=== PATIENT | female | born 1970 | race African-American/Black ===

== ENCOUNTER 2024-01-19 04:34 | Day surgery (SDC) | payer BC ==
[2024-01-13 10:17] VITALS: BMI 20.1
[2024-01-19 10:30] VITALS: TEMP 97.3
[2024-01-19 11:12] VITALS: BP 125/67; PULSE 60; RESP 16
== END 2024-01-19 11:15 | disposition home or self-care (01) ==
LOC: JASU-ENDO 04:34
PROVIDERS: ATTEND Internal Medicine Gastroenterology
PROC: 0DBN8ZX Excision of Sigmoid Colon, Via Natural or Artificial Opening Endoscopic, Diagnostic (ICD-10-PCS; principal; 2024-01-19 09:15)
DX: Z12.11 Encounter for screening for malignant neoplasm of colon (principal); K63.5 Polyp of colon; K64.8 Other hemorrhoids
CPT/HCPCS: 82962; 88305-TC